=== PATIENT | male | born 1975 | race Caucasian/White ===

== ENCOUNTER 2016-06-17 12:12 | Observation (INO) | payer BC ==
--- NOTE | 2016-06-17 12:31 | ER Document Report ---
ED Medical Screen (RME) - General Stated Complaint: STOMACH PAIN Notes: 41 yo male c/o epigastric, vomiting/diarrhea x 2 days. no fever. + bodyaches. aggrevated with food. abd firm, + generalized upper abdominal pain with guarding
[2016-06-17 12:53] LABS: ABSOLUTE EOSINOPHILS # (AUTO) 0.1 10^3/uL (0.0-0.6); ABSOLUTE LYMPHOCYTES (AUTO) 1.1 10^3/uL (0.5-4.7); ABSOLUTE MONOCYTES (AUTO) 0.8 10^3/uL (0.1-1.4); ABSOLUTE NEUT (AUTO) 8.2 10^3/uL (1.7-8.2); BASOPHILS % (AUTO) 0.2 % (0-2); EOSINOPHILS % (AUTO) 0.6 % (0-6); HEMOGLOBIN 15.1 g/dL (13.5-17.0); HGB HCT DIFFERENCE 1.3; LYMPHOCYTES % (AUTO) 10.8 % (13-45); MEAN CORPUSCULAR HEMOGLOBIN 29.9 pg (27.0-33.4); MEAN CORPUSCULAR HGB CONC 34.4 g/dL (32.0-36.0); MEAN CORPUSCULAR VOLUME 87 fl (80-97); MONOCYTES % (AUTO) 7.6 % (3-13); RED BLOOD COUNT 5.06 10^6/uL (4.35-5.55); RED CELL DISTRIBUTION WIDTH 13.3 % (11.5-14.0); SEGMENTED NEUTROPHILS % (AUTO) 80.8 % (42-78); WHITE BLOOD COUNT 10.2 10^3/uL (4.0-10.5)
[2016-06-17 12:59] LABS: APPEARANCE,URINE CLEAR; BILIRUBIN,URINE NEGATIVE (NEGATIVE); GLUCOSE, URINE NEGATIVE (NEGATIVE); KETONES,URINE NEGATIVE (NEGATIVE); LEUKOCYTE ESTERASE,URINE NEGATIVE (NEGATIVE); NITRITE,URINE NEGATIVE (NEGATIVE); PROTEIN,URINE 30 mg/dL (NEGATIVE); URINE SPECIFIC GRAVITY 1.031; UROBILINOGEN,URINE NEGATIVE mg/dL (<2.0)
[2016-06-17 13:08] LABS: ALANINE AMINOTRANSFERASE 34 U/L (21-72); ALBUMIN 4.7 g/dL (3.5-5.0); ALKALINE PHOSPHATASE 54 U/L (38-126); ANION GAP 15 (5-19); ASPARTATE AMINO TRANSFERASE 20 U/L (17-59); BILIRUBIN,DIRECT 0.1 mg/dL (0.0-0.4); BILIRUBIN,TOTAL 1.3 mg/dL (0.2-1.3); BLOOD UREA NITROGEN 19 mg/dL (7-20); CALCIUM 9.5 mg/dL (8.4-10.2); CARBON DIOXIDE 23 mmol/L (22-30); CHLORIDE 101 mmol/L (98-107); CREATININE RESULT 0.91 mg/dL (0.52-1.25); GLUCOSE 112 mg/dL (75-110); LIPASE 25.7 U/L (23-300); POTASSIUM 3.9 mmol/L (3.6-5.0); SODIUM 139.3 mmol/L (137-145); TOTAL PROTEIN 7.4 g/dL (6.3-8.2)
[2016-06-17] MEDS ORDERED: ONDANSETRON HCL INJ/PF 4 MG/2 ML SDV IV ONE (17:24)
[2016-06-17] MEDS ORDERED: MORPHINE SULFATE 10 MG/ML INJ IV ONE (17:24)
[2016-06-17] MEDS ORDERED: NORMAL SALINE 1000 ML 1,000 ML IV ONE (17:24)
--- NOTE | 2016-06-17 17:28 | ER Document Report ---
ED GI/ - General Mode of Arrival: Ambulatory Information source: Patient TRAVEL OUTSIDE OF THE [place] IN LAST 30 DAYS: No - HPI Patient complains to provider of: Abdominal pain Associated symptoms: Other - See above <STEWART APPIAH - Last Filed: 06/17/16 17:23> <YOLA ANDREWS - Last Filed: 06/17/16 20:42> - General Chief Complaint: Epigastric Pain Stated Complaint: STOMACH PAIN Notes: Patient is a 41 year old male who presents to the emergency department complaining of epigastric abdominal pain. Patient reports that he has had problems with pressure in his abdomen for a while but yesterday after eating it worsened. Patient complains of pressure in his upper stomach and along the sides and nausea particularly after eating greasy foods. Patient denies any history of gallbladder issues and states that he isn't taking nay regular medications. (STEWART APPIAH) - Related Data Allergies/Adverse Reactions: No Known Allergies Allergy (Verified 06/17/16 19:29) Home Medications: Current Home Medications No Home Medications 06/17/16 [History] Past Medical History - General Information source: Patient - Social History Smoking Status: Never Smoker Frequency of alcohol use: Rare Drug Abuse: None Family History: Reviewed & Not Pertinent Patient has suicidal ideation: No Patient has homicidal ideation: No <STEWART APPIAH - Last Filed: 06/17/16 17:23> Review of Systems - Review of Systems Constitutional: No symptoms reported EENT: No symptoms reported Cardiovascular: No symptoms reported Respiratory: No symptoms reported Gastrointestinal: See HPI, Abdominal pain, Nausea Genitourinary: No symptoms reported Male Genitourinary: No symptoms reported Musculoskeletal: No symptoms reported Skin: No symptoms reported Hematologic/Lymphatic: No symptoms reported Neurological/Psychological: No symptoms reported -: Yes All other systems reviewed and negative <STEWART APPIAH - Last Filed: 06/17/16 17:23> Physical Exam - Vital signs Interpretation: Normal - General General appearance: Appears well, Alert - HEENT Head: Normocephalic, Atraumatic - Respiratory Respiratory status: No respiratory distress - Abdominal Inspection: Normal Distension: No distension Bowel sounds: Hypoactive - consistent with small bowel ileus Tenderness: Tender - Tenderness to palpation of epigastric area and RUQ Organomegaly: No organomegaly - Extremities General upper extremity: Normal inspection General lower extremity: Normal inspection - Neurological Neuro grossly intact: Yes Cognition: Normal Orientation: AAOx4 [place] Coma Scale Eye Opening: Spontaneous [place] Coma Scale Verbal: Oriented [place] Coma Scale Motor: Obeys Commands [place] Coma Scale Total: 15 Speech: Normal - Psychological Associated symptoms: Normal affect, Normal mood - Skin Skin Temperature: Warm Skin Moisture: Dry Skin Color: Normal <TDSTEWART - Last Filed: 06/17/16 17:23> Course - Laboratory Result Diagrams: 06/17/16 12:35 06/17/16 12:35 <APPIAHSTEWART - Last Filed: 06/17/16 17:23> - Laboratory Result Diagrams: 06/17/16 12:35 06/17/16 12:35 - Diagnostic Test Radiology reviewed: Reports reviewed - Ultrasound shows cholelithiasis without cholecystitis - Consults Dr. Ratliff Time consulted: 19:15 Consulted provider: will come to ER <YOLA ANDREWS - Last Filed: 06/17/16 20:42> - Vital Signs Vital signs: Temp Pulse Resp BP Pulse Ox 97.6 F 90 16 136/82 H 98 06/17/16 19:05 06/17/16 19:05 06/17/16 19:05 06/17/16 19:05 06/17/16 19:05 - Laboratory Laboratory results interpreted by me: 06/17/16 06/17/16 06/17/16 12:35 12:35 12:35 Seg Neutrophils % 80.8 H Lymphocytes % 10.8 L Glucose 112 H Urine Protein 30 H Discharge <STEWART APPIAH - Last Filed: 06/17/16 17:23> - Discharge Admitting Provider: Surgicalist Unit Admitted: Medical Floor <YOLA ANDREWS - Last Filed: 06/17/16 20:42> - Discharge Clinical Impression: Ileus, unspecified Cholelithiasis Qualifiers: Cholelithiasis location: gallbladder Cholecystitis presence: without cholecystitis Biliary obstruction: without biliary obstruction Qualified Code(s) : K80.20 - Calculus of gallbladder without cholecystitis without obstruction Condition: Stable Disposition: ADMITTED INPATIENT Scribe Attestation: 06/17/16 19:53 I personally performed the services described in the documentation, reviewed and edited the documentation which was dictated to the scribe in my presence, and it accurately records my words and actions. (YOLA ANDREWS) Scribe Documentation - Scribe Written by Scribe:: carolynn Ruiz, 06/17/16, 2023 acting as scribe for :: Luz Marina <STEWART APPIAH - Last Filed: 06/17/16 17:23>
[2016-06-17] MEDS ORDERED: DEXTROSE 5%-LACTATED RINGERS 1,000 ML IV ONE (18:53)
[2016-06-17] MEDS ORDERED: DEXTROSE 5%-LACTATED RINGERS 1,000 ML IV PRN (20:50)
--- NOTE | 2016-06-17 21:38 | HISTORY AND PHYSICAL E ---
History and Physical NAME: SEUN SUBRAMANIAN : 1975 AGE: 41Y ADMITTED: 06/17/2016 ROOM: ED13 REASON FOR ADMISSION: Cholelithiasis causing biliary colic. This 41-year-old male presented to the hospital with a 2-day history of epigastric, substernal, and right upper quadrant pain associated with nausea and vomiting, and diarrhea for 2 days. The patient denies any fever. The patient gives a history of arthralgias. The patient's substernal and right upper quadrant pain radiates to the back and is aggravated by food. The patient has a history of postprandial bloating, gaseousness, indigestion, heartburn, and early satiety, which goes back 2 years. The patient has had this multiple times over the past 2 years, but has resisted seeking medical attention. The patient denies any *------*, acholic stools, or jaundice. Denies any fever or chills. The patient has had intractable diarrhea for the last several days. The patient presented to the emergency room and on examination was found to have right upper quadrant and epigastric tenderness. Laboratory data was essentially within normal limits with normal electrolytes, normal liver function studies, normal CBC. The patient then underwent an ultrasound of the abdomen after undergoing an acute abdominal series. The abdominal series showed nonspecific bowel gas pattern with a few scattered bowel loops with small air/fluid levels. There was no distended large or small bowel loops. The patient then underwent an ultrasound of the abdomen, which revealed multiple stones in the gallbladder, with no pericholecystic fluid or gallbladder wall thickening. Because of the chronic history, the patient is now admitted to the hospital for definitive intervention. PAST MEDICAL HISTORY: The patient has no history of diabetes mellitus, hypertension, cardiac, renal, pulmonary, liver disease, or bleeding tendencies. No history of any anesthesia problems. ALLERGIES: No known allergies. PAST SURGICAL HISTORY: None. PAST INJURIES: None. REVIEW OF SYSTEMS: The patient denies any symptoms referable to the constitutional system. Denies any ear, nose, or throat, respiratory, cardiovascular system symptoms. Gastrointestinal symptoms as in history of present illness. The patient denies any symptoms referable to the genitourinary, musculoskeletal, lymphatic, integumentary, endocrine, psychiatric. The patient has no evidence of any other symptom complexes. PHYSICAL EXAMINATION: GENERAL: 41-year-old male who is well-developed, well-nourished, in no acute distress. VITAL SIGNS: Temperature 99.2, pulse rate 110, blood pressure 133/73, respirations 18, saturation 97% on room air. HEENT: There is no conjunctival pallor or icterus. Mucous membranes are moist and pink. PERRLA. EOMI. NECK: Supple without nodes, masses, JVD, or bruits. Trachea is midline. CHEST WALL: Good excursions. The lungs are clear anteriorly with good entry. CARDIOVASCULAR: S1 and S2 are audible without murmurs or gallops. ABDOMEN: Soft. Bowel sounds are present. There is epigastric and right upper quadrant tenderness with mild guarding. There is no rebound. Bowel sounds are present. Negative Roberts's sign is noted. There is no organomegaly or masses. No hernias or bruits are noted. EXTREMITIES: Full range of motion. RECTAL: Deferred. IMPRESSION: Cholecystectomy causing biliary colic of longstanding nature, going back 2 years. PLAN: The patient will be scheduled for laparoscopic cholecystectomy in the a.m. DICTATING PHYSICIAN: SHAI GRIDER M.D. [id number] PHY#: [id number] ID: [id number] JOB#: [id number] ACCT: [id number] cc:Milly BRADFORD MD
--- NOTE | 2016-06-18 08:00 | PDOC PROGRESS REPORT ---
Subjective Progress Note for:: 06/18/16 Subjective:: Feels okay. Some epigastric abdominal pain. Physical Exam Vital Signs: Temp Pulse Resp BP Pulse Ox 98.0 F 93 19 130/81 H 99 06/18/16 00:15 06/18/16 00:15 06/18/16 00:15 06/18/16 00:15 06/18/16 00:15 Intake & Output 06/17/16 06/18/16 06/19/16 06:59 06:59 06:59 Intake Total 0 Balance 0 Weight 148.9 kg General appearance: PRESENT: no acute distress, cooperative Respiratory exam: PRESENT: clear to auscultation blanca Cardiovascular exam: PRESENT: RRR GI/Abdominal exam: PRESENT: other - Soft, nondistended, mild right upper quadrant abdominal tenderness without peritoneal signs. Results Impressions: Acute Abdomen Series 06/17/16 12:31 IMPRESSION: NONSPECIFIC BOWEL GAS PATTERN. Few scattered bowel loops with small air fluid levels. No distended large or small bowel loops. Abdomen Ultrasound 06/17/16 17:24 IMPRESSION: CHOLELITHIASIS WITHOUT SONOGRAPHIC EVIDENCE CHOLECYSTITIS. HEPATIC STEATOSIS. Assessment & Plan - Diagnosis (1) Cholelithiasis Qualifiers: Cholelithiasis location: gallbladder Cholecystitis presence: with cholecystitis Biliary obstruction: without biliary obstruction Qualified Code(s): K80.20 - Calculus of gallbladder without cholecystitis without obstruction Is this a current diagnosis for this admission?: YesPlan: Likely cholecystitis in light of his tenderness and pain. Will plan laparoscopic cholecystectomy. I discussed with the patient the risk and benefits of the procedure including risk of conversion to open procedure, risk of bleeding, intestinal injury, bile duct injury, postcholecystectomy diarrhea, mistaken diagnosis. Patient understands and the agrees to proceed.
[2016-06-18] MEDS ORDERED: BUPIVACAINE HCL 0.25 % INJ/PF (2.5 MG/1 ML) 30 ML VIAL ONE (10:32)
[2016-06-18] MEDS ORDERED: PROPOFOL INJ 200 MG/20 ML VIAL IV ONE (12:15)
[2016-06-18] MEDS ORDERED: MORPHINE SULFATE 10 MG/ML INJ ONE (12:15)
[2016-06-18] MEDS ORDERED: ACETAMINOPHEN 100 ML IV ONE (12:15)
[2016-06-18] MEDS ORDERED: FENTANYL CITRATE INJ/PF 250 MCG/5 ML AMPULE ONE (12:15)
[2016-06-18] MEDS ORDERED: MIDAZOLAM 2 MG/2 ML INJ ONE (12:15)
[2016-06-18] MEDS ORDERED: CEFAZOLIN INJ 1 GM VIAL ONE (12:29)
[2016-06-18] MEDS ORDERED: DIPHENHYDRAMINE HCL 50 MG/ML VIAL IV PRN (12:54)
[2016-06-18] MEDS ORDERED: FENTANYL CITRATE INJ/PF 100 MCG/2 ML AMPUL IV PRN ×3 (12:54)
[2016-06-18] MEDS ORDERED: PROMETHAZINE HCL INJ 25 MG/1 ML VIAL IV PRN ×2 (12:54)
[2016-06-18] MEDS ORDERED: MORPHINE SULFATE 10 MG/ML INJ IV PRN ×2 (12:54→13:46)
[2016-06-18] MEDS ORDERED: MEPERIDINE HCL/PF INJ 25 MG/1 ML DISP.SYRIN IV PRN (12:54)
[2016-06-18] MEDS ORDERED: OXYCODONE-ACETAMINOPHEN 5-325 MG TABLET PO PRN ×2 (12:54)
[2016-06-18] MEDS ORDERED: ONDANSETRON HCL INJ/PF 4 MG/2 ML SDV IV PRN ×2 (12:54→13:46)
--- NOTE | 2016-06-18 13:46 | Operative Report ---
Operative Report DATE OF SURGERY: 06/18/16 PREOPERATIVE DIAGNOSIS: Symptomatic cholelithiasis POSTOPERATIVE DIAGNOSIS: Symptomatic cholelithiasis OPERATION: Laparoscopic cholecystectomy SURGEON: OREN JIMENEZ ANESTHESIA: GA TISSUE REMOVED OR ALTERED: Gallbladder COMPLICATIONS: None ESTIMATED BLOOD LOSS: minimal INTRAOPERATIVE FINDINGS: Distended gallbladder with some mild gallbladder wall edema. Gallstone. PROCEDURE: Informed consent was obtained. Patient was brought to the operating room placed operating table in supine position. After satisfactory induction of general anesthesia, patient's abdomen was prepped and draped in usual sterile fashion. A supraumbilical midline incision was made and dissection carried down to the fascia the peritoneal cavity entered without difficulty. Umaña trocar was inserted. Pneumoperitoneum produced good patient toleration. 5 mm trocar was placed in the subxiphoid location.Two 5 mm trochars were placed in the right subcostal location. The gallbladder was grasped and retracted cephalad over the dome of the liver. The infundibulum of the gallbladder was grasped retracted laterally and inferiorly thus exposing calot's triangle. The cystic duct gallbladder junction was clearly identified and the cystic duct was clipped and divided. Cystic artery was likewise taken. The gallbladder was taken off the gallbladder bed using the hook electrocautery technique. The gallbladder was removed with an Endobag through the Umaña trocar site fascial defect. Hemostasis appeared excellent. No irrigation was used during the case. There was no bile spillage during the case. All trochars were removed under the direct vision a laparoscope to ensure hemostasis. The Uma[place] trocar site fascial defect was closed with interrupted Vicryl sutures. All skin incisions were closed with subcuticular interrupted Monocryl sutures. Marcaine was injected at the port sites. Patient tolerated procedure well no apparent complications and was taken to the recovery area in stable condition.
[2016-06-18] MEDS ORDERED: DEXAMETHASONE SOD PHOSPHATE INJ 4 MG/1 ML VIAL ONE (14:20)
[2016-06-18] MEDS ORDERED: GLYCOPYRROLATE INJ 0.4 MG/2 ML VIAL ONE (14:20)
[2016-06-18] MEDS ORDERED: SUCCINYLCHOLINE CHLORIDE INJ 200 MG/10 ML VIAL ONE (14:20)
[2016-06-18] MEDS ORDERED: ROCURONIUM BROMIDE INJ 50 MG/5 ML VIAL IV ONE (14:20)
[2016-06-18] MEDS ORDERED: ONDANSETRON HCL INJ/PF 4 MG/2 ML SDV ONE (14:20)
[2016-06-18] MEDS ORDERED: NEOSTIGMINE METHYLSULFATE 10 MG/10 ML VIAL ONE (14:20)
[2016-06-19 07:44] VITALS: BP 136/77
--- NOTE | 2016-06-19 08:43 | DISCHARGE SUMMARY E ---
Discharge Summary NAME: SEUN SUBRAMANIAN : 1975 AGE: 41Y ADMITTED: 06/17/2016 DISCHARGED: 06/19/2016 DISCHARGE DIAGNOSIS: Status post lap lara for cholelithiasis causing biliary colic. HOSPITAL COURSE: This 41-year-old male presented to the hospital with a 2-year history of right upper quadrant pain, postprandial bloating, gaseous indigestion, and early satiety going back 2 years. The patient's pain was mostly substernal as well as right upper quadrant going to his back. Patient presented to the emergency room and was found to have a cholelithiasis on ultrasound and the patient was admitted to the hospital. The patient was taken to the operating room on 06/[address] Kelby Jerome where he underwent an uneventful laparoscopic cholecystectomy. The patient's postop course was uneventful. He was started on full liquids immediately postop and advanced to regular diet, and the patient has done well. At the time of discharge, patient's abdomen is soft with mild incisional tenderness. Wounds are clean, dry, and intact, and the patient is tolerating his diet well. DISCHARGE PLAN: The patient is now discharged home and is to return to see Dr. Jerome in 7-10 days. The patient has been advised to avoid heavy lifting, pulling or pushing greater than 30 pounds for 2 weeks, and he may shower and bathe. The patient is discharged home on Percocet. DICTATING PHYSICIAN: SHAI GRIDER M.D. [id number] [id number] ID: [id number] JOB#: [id number] ACCT: [id number] cc:YOLA ANDREWS M.D. NO Milly ENGLISH M.D. >
== END 2016-06-19 09:05 | disposition home or self-care (01) ==
LOC: ER 12:12 → EH 20:50 → INTOOBSV 20:50 → EH 21:09 → UNDOADMIN 21:09 → 5 06-18 00:15
PROC: 0FT44ZZ Resection of Gallbladder, Percutaneous Endoscopic Approach (ICD-10-PCS; principal; 2016-06-17)
PROC: 3E033GC Introduction of Other Therapeutic Substance into Peripheral Vein, Percutaneous Approach (ICD-10-PCS; 2016-06-17)
PROC: 3E033GC Introduction of Other Therapeutic Substance into Peripheral Vein, Percutaneous Approach (ICD-10-PCS; 2016-06-17)
DX: K80.10 Calculus of gallbladder with chronic cholecystitis without obstruction (principal); E66.9 Obesity, unspecified; Z68.41 Body mass index [BMI] 40.0-44.9, adult
CPT/HCPCS: 99285; 96375; 96365; 36415; 83690; 85025; 80053; 81001; 88304 ×2; 74022; 76705; 47562; G0378 ×3; J2250; J0690; J3490; J1100; J3010; J2270 ×2; J0330; J2405 ×2; J7030; J2704; J0131; 790